=== PATIENT | female | born 1960 | race Caucasian/White ===

== ENCOUNTER 2023-05-11 06:31 | Outpatient (OUT) | payer OTHER, SELFPAY ==
[2023-05-11 07:04] LABS: Basophils Absolute Auto 0.1 10^3/uL (0.0-0.1); Eosinophils Absolute Auto 0.2 10^3/uL (0.0-0.7); Eosinophils Percent Auto 1.5 % (0.9-7.0); Hematocrit 44.9 % (36.0-48.0); Hemoglobin 15.3 g/dL (12.0-16.0); Immature Granulocytes Abs Auto 0.02 10^3/uL (0.00-0.03); Immature Granulocytes Pct Auto 0.2 % (0.0-0.5); Lymphocytes Absolute Auto 3.3 10^3/uL (1.2-3.8); Lymphocytes Percent Auto 33.3 % (20.5-60.0); Mean Corpuscular HGB Conc 34.1 g/dL (29.9-35.2); Mean Corpuscular Hemoglobin 34.3 pg (26.7-34.0); Mean Corpuscular Volume 100.7 fL (81.0-99.0); Mean Platelet Volume 10.7 fL (9.5-13.5); Monocytes Absolute Auto 1.3 10^3/uL (0.3-0.8); Monocytes Percent Auto 13.2 % (1.7-12.0); Neutrophils Percent Auto 50.8 % (43.0-75.0); Platelet Count 410 10^3/uL (150-450); Red Blood Count 4.46 10^6/uL (4.20-5.40); Red Cell Distribution Width 13.6 % (11.0-15.0); White Blood Count 9.9 10^3/uL (4.0-11.0)
[2023-05-11 07:59] LABS: Alanine Aminotransferase 64 U/L (14-59); Albumin Globulin Ratio 0.9; Albumin Level 3.8 g/dL (3.4-5.0); Alkaline Phosphatase 68 U/L (46-116); Anion Gap 13.2; Aspartate Amino Transferase 40 U/L (15-37); BUN Creatinine Ratio 16.4; Bilirubin Total 0.7 mg/dL (0.2-1.0); Calcium 9.6 mg/dL (8.5-10.1); Carbon Dioxide 30.4 mmol/L (21.0-32.0); Chloride 97 mmol/L (98-107); Estimated GFR (African America >60 (>=60); Estimated GFR (Non-African Ame >60 (>=60); Globulin 4.1 g/dL; Glucose 141 mg/dL (74-106); Potassium 3.6 mmol/L (3.5-5.1); Sodium 137 mmol/L (136-145); Thyroid Stimulating Hormone 3.004 uIU/mL (0.358-3.740); Total Protein 7.9 g/dL (6.4-8.2)
== END 2023-05-11 06:32 | disposition home or self-care (01) ==
LOC: LAB 06:32
PROVIDERS: PCP Family Medicine; Visit Provider Family Medicine
DX: F41.9 Anxiety disorder, unspecified (principal); R73.9 Hyperglycemia, unspecified
CPT/HCPCS: 36415; 80053; 84436; 84443; 85025

== ENCOUNTER 2025-03-04 10:17 | Outpatient (OUT) | payer OTHER, SELFPAY ==
[2025-03-04 11:09] LABS: Chol HDL Ratio 5.3; Cholesterol 338 mg/dL (<=200); HDL Cholesterol 64 mg/dL (40-60); Triglycerides 109 mg/dL (<=150); VLDL CHOLESTEROL 21.8 mg/dL
== END 2025-03-04 10:18 | disposition home or self-care (01) ==
PROVIDERS: PCP Family Medicine; Visit Provider Family Medicine
DX: K58.9 Irritable bowel syndrome, unspecified (principal); Z13.220 Encounter for screening for lipoid disorders; F41.9 Anxiety disorder, unspecified
CPT/HCPCS: 36415; 80061